=== PATIENT | female | born 1960 | race Caucasian/White ===

== ENCOUNTER 2025-06-12 10:55 | Day surgery (SDC) | payer MEDICARE ==
[~2025-06-12 10:55] MED LIST: BETADINE 5% OPHTHALMIC 30 ML OP NR; DEXMEDETOMIDINE 80 MCG/20ML-NS IV NR; Epinephrine Preservative Free 1 MG/ML INTRAOP NR; Lactated Ringers 1,000 ML IV ONE; TRIAMCINOLONE 15 MG/ML INJ INTRAOP NR; VIGAMOX/BSS 0.15% SYR IO NR; Zofran 4 MG/2 ML VIAL IV PRN
[2025-06-12] MEDS: Lactated Ringers 1,000 ML IV SCH (11:17)
[2025-06-12] MEDS: TETRACAINE 0.5% STERI-UNIT SOL OP ONE ×2 (11:17→11:35)
[2025-06-12] MEDS: Ak-Dilate OPHTHALMIC*** 0.71 ML, Cyclogyl 1% OPHTH SOL 0.71 ML, GATIFLOXACIN 0.5% OPHTH... OP SCH (11:18)
[2025-06-12] MEDS ORDERED: propofoL IV ONE ×2 (13:09→13:21)
[2025-06-12] MEDS ORDERED: SUBLIMAZE 100 MCG/2 ML ONE (13:15)
[2025-06-12 13:39] VITALS: RESP 16; TEMP 97.5
[2025-06-12] MEDS: ACETAZOLAMIDE 250 MG TABLET PO ONE (13:41)
[2025-06-12 13:53] VITALS: BP 102/71; PULSE 69; O2SAT 99
== END 2025-06-12 14:04 | disposition home or self-care (01) ==
LOC: SDC 10:55
PROVIDERS: ATTEND Ophthalmology
DX: H25.811 Combined forms of age-related cataract, right eye (principal)